=== PATIENT | female | born 1950 | race Caucasian/White ===

== ENCOUNTER → 2018-04-04 | Outpatient (CLI) | payer OTHER, BC | LOC: RAD 16:42 | DX: J98.11 Atelectasis (principal); J98.4 Other disorders of lung ==

== ENCOUNTER → 2020-08-27 | Outpatient (CLI) | payer OTHER, BC | LOC: RAD 09:57 | PROVIDERS: ATTEND Internal Medicine | DX: R06.00 Dyspnea, unspecified (principal) ==